=== PATIENT | male | born 1950 | race Caucasian/White ===

== ENCOUNTER → 2017-11-27 | Outpatient (CLI) | payer MEDICARE, OTHER ==
--- NOTE | 2017-11-27 10:44 | DIREP ---
PROCEDURE:MRI BRAIN W&W/O COMPARISON:None. INDICATIONS:MEMORY CHANGES R41.3 TECHNIQUE:A variety of imaging planes and parameters were utilized for visualization of suspected pathology. Images were performed without and with gadolinium contrast. FINDINGS: VENTRICLES:Normal. CEREBRUM:No restricted diffusion to suggest acute infarct or mass lesion. Prominent perivascular space versus old lacunar infarct in the medial left temporal lobe. CEREBELLUM:Normal. BRAINSTEM:Normal. BASAL CISTERNS:Normal. SKULL:Normal. OTHER:Retention cyst or polyp in the right maxillary sinus. CONCLUSION:No restricted diffusion to suggest acute infarct or mass lesion. Medial left temporal lobe prominent perivascular space versus tiny old lacunar infarct. Dictated by: Tyron Oliveira MD on 11/27/2017 at 10:33 AM
== END | disposition home or self-care (01) ==
LOC: MRI 08:29
PROVIDERS: ATTEND Nurse Practitioner Family
DX: R41.3 Other amnesia (principal); J34.1 Cyst and mucocele of nose and nasal sinus
CPT/HCPCS: 70553; A9579